=== PATIENT | male | born 2000 | race Caucasian/White ===

== ENCOUNTER 2021-01-27 12:47 | Emergency (ER) | payer MEDICAID, SELFPAY ==
[2021-01-27 12:49] VITALS: BP 135/76; PULSE 73; RESP 19; TEMP 36.8; O2SAT 100; BMI 24.2
[2021-01-27] MEDS: Ondansetron ODT 4 MG TAB.RAPDIS TRANSLINGU (12:56)
[2021-01-27] MEDS: dexAMETHasone sod phosphate 10 MG/ML VIAL IVPUSH (14:40)
[2021-01-27] MEDS: Ketorolac Tromethamine 15 MG/ML VIAL 30 MG IVPUSH (14:41)
[2021-01-27] MEDS: Metoclopramide HCl 10 MG/2 ML VIAL IVPUSH (14:41)
[2021-01-27] MEDS: diphenhydrAMINE HCL 50 MG/ML VIAL 25 MG IVPUSH (14:41)
[2021-01-27] MEDS: 0.9 % Sodium Chloride 1,000 ML 999 ML IV (14:42)
--- NOTE | 2021-01-27 15:14 | ED.HA ---
HPI - Headache General Chief Complaint: Headache Stated Complaint: headache Time Seen by Provider: 01/27/21 14:28 History of Present Illness HPI Narrative: 20-year-old male with a history of migraine headaches in the past. Presents today with having headache that is over the left side. It is dull in nature. Similar to previous bouts. Worsened with light worsen with noise patient from home. No focal weakness. No diaphoresis. No fever no chills. No sudden in the family. No history of aneurysms. No family history of aneurysms. Related Data Previous Rx's Medication Instructions Recorded ibuprofen 400 mg tablet 400 mg PO Q6H PRN #20 tab 01/27/21 ondansetron HCl 4 mg tablet 4 mg PO Q8H PRN #10 tab 01/27/21 (Zofran) Allergies Allergy/AdvReac Type Severity Reaction Status Date / Time No Known Allergies Allergy Verified 01/27/21 12:49 Review of Systems Review of Systems: No fever no chills No cough no upper respiratory symptoms Similar to previous bouts of migraine Yes all other systems are reviewed and are negative [facility] Past Medical History Attestation statement: The following information was validated with the patient. Medical History Anxiety Cluster headache Social History Social History Advance Directives: No Advance Directives Information Provided: No Physical Exam Vital Signs: Vital Signs: Last Vital Signs Temp 98.2 F 01/27/21 12:49 Pulse 73 01/27/21 12:49 Resp 19 01/27/21 12:49 BP 135/76 01/27/21 12:49 Pulse Ox 100 01/27/21 12:49 Body Mass Index 24.2 Appearance: Alert. Oriented X3. No acute distress. Eyes: Pupils equal, round and reactive to light. ENT: Pharynx normal. Neck: Normal inspection. Neck supple. No lymph nodes noted. No crepitus CVS: Normal heart rate and rhythm. Pulses normal. Normal S1 and S2 Respiratory: No respiratory distress. Breath sounds normal. No Wheezing. No rales Abdomen: Soft and nontender. No rigidity. No distention. good BS x4 Skin: Skin warm and dry. Normal skin color. Normal skin turgor. Extremities: No lower extremity edema. Neurovascular intact to all extremities. No Lacerations. No Rash Neuro: Oriented X 3. No motor deficit. No sensory deficit. Moving all extermities. No slurred speech MDM - Headache MDM Narrative Medical decision making narrative: Symptoms suggestive of migraine headache. Given treatment here with Reglan Toradol IV fluid Benadryl with good symptomatic relief. Will discharge patient home. In stable condition. No evidence for meningitis no fever no chills no nuchal rigidity no fever. History not consistent with subarachnoid hemorrhage Differential Diagnosis Differential diagnosis: Likely migraine Medical Records Attestation: I reviewed the patient's medical records. Discharge Plan Discharge Clinical Impression: Migraine Patient Disposition: Home, Self-Care Instructions: Migraine Headache (ED) Prescriptions: New ondansetron HCl [Zofran] 4 mg tablet 4 mg PO Q8H PRN (Reason: nausea and vomiting) Qty: 10 RF: 0 ibuprofen 400 mg tablet 400 mg PO Q6H PRN (Reason: pain) Qty: 20 RF: 0 Referrals: [facility] [Primary Care Provider] - 2 days
== END 2021-01-27 15:26 | disposition home or self-care (01) ==
PROVIDERS: Emergency Provider Emergency Medicine Emergency Medical Services
DX: G43.009 Migraine without aura, not intractable, without status migrainosus (principal)
CPT/HCPCS: 96361; 96374; 96375; 99284; J1100; J1200; J1885; J2765